=== PATIENT | female | born 2000 | race Caucasian/White ===

== ENCOUNTER → 2020-03-24 12:59 | Outpatient (CLI) | payer OTHER, SELFPAY ==
--- NOTE | 2020-03-24 13:05 | CT_ITS ---
STUDY: CTA CHEST REASON FOR EXAM: Female, 19 years old. SHORT OF BREATH and chest pain. RADIATION DOSAGE (If Supplied By Facility): CTDIvol = ( 9.44 ) mGy, DLP = ( 255.20 ) mGycm TECHNIQUE: The examination was performed with the intravenous administration of IV 100mL Isovue-[id number]. Post-processing of the angiographic images was performed, with multiplanar reformation and 3D reconstruction. Individualized dose optimization techniques were used for this CT. COMPARISON: None. FINDINGS: Normal enhancement of the main pulmonary artery and right and left pulmonary arteries. Normal enhancement of the bilateral peripheral pulmonary arteries. There is no demonstrated pulmonary embolism. Normal thoracic aorta and visualized great vessels. There is no demonstrated aortic dissection. Normal heart and pericardium. Normal mediastinum. Normal hilar regions. Normal visualized trachea and bronchi. The lungs are well expanded. Normal pulmonary parenchyma. Normal pleura. Normal chest wall structures. Normal osseous structures. Normal visualized upper abdomen. CT/CTA Chest W/WO Contrast IMPRESSION: Within normal limits CTA chest examination, without a demonstrated pulmonary embolism or arterial dissection. Electronically Signed: Nica Walker MD at 18:51 EST Tel , Service support ,
[2020-03-24 13:24] LABS: Absolute Lymphocyte Count 1.46 X10^3/uL (0.83-4.51); Absolute Neutrophil Count 3.9 X10^3/uL (2.0-7.7); Basophil# 0.01 X10^3/uL; Basophil% 0.2 % (0-1); Eosinophil# 0.01 X10^3/uL; Eosinophils% 0.2 % (0-5); Hematocrit 37.8 % (37-47); Hemoglobin 13.6 g/dL (12.0-15.0); Lymphocyte # 1.46 X10^3/ul (4.0); Lymphocyte % 25.3 % (19-41); Mean Corpuscular Hgb 36.2 pg (27.0-32.0); Mean Corpuscular Volume 100.5 fL (81-99); Mean Platelet Vol. 9.5 fl (6.2-12.0); Monocyte# 0.33 X10^3/uL; Monocyte% 5.7 % (0-10); NRBC Flagged by Analyzer 0 % (0-5); Neutrophil # 3.92 X10^3/uL (2.7-7.7); Neutrophil % 68.1 % (47-70); Platelet Count 199 K/mm3 (150-450); RBC Distribution Width CV 11.6 % (11.6-14.6); RBC Distribution Width SD 41.9 fl (35.1-43.9); Red Blood Count 3.76 M/mm3 (4.2-5.4); White Blood Count 5.8 K/mm3 (4.4-11.0)
[2020-03-24 13:34] LABS: ALB/GLOB Ratio 1.3 RATIO (0.9-2.4); AST(SGOT) 11 U/L (15-37); Alanine Aminotransfer ALT/SGPT 17 U/L (13-56); Albumin, Serum 4.6 g/dL (3.2-5.0); Alkaline Phosphatase 71 U/L (45-117); Anion Gap 5 (5-15); BUN 10 mg/dL (7-18); BUN/Creat Ratio 13.6 RATIO (10-20); Calcium,Total 9.4 mg/dL (8.5-10.1); Chloride 108 mmol/L (98-107); Creatinine, Serum 0.74 mg/dL (0.55-1.02); EST Glomerular Filtration Rate 106 mL/min (>60); Est Glom Filt Rate - Afr Amer 128 mL/min (>60); Globulin 3.5 g/dL (2.2-4.2); Glucose 82 mg/dL (74-106); Potassium 3.9 mmol/L (3.5-5.1); Protein, Total 8.1 g/dL (6.4-8.2); Sodium Level 139 mmol/L (136-145)
== END ==
PROVIDERS: PCP Internal Medicine; Referring Provider Internal Medicine; Visit Provider Internal Medicine
DX: R06.02 Shortness of breath (principal); R07.9 Chest pain, unspecified
CPT/HCPCS: 71275; 80053; 84484; 85025; 85379; Q9967

== ENCOUNTER → 2020-03-29 12:52 | Outpatient (CLI) | payer OTHER, SELFPAY ==
--- NOTE | 2020-03-29 12:54 | ECHOD_ITS ---
Reason For Study: CP Procedure This was a 2D Doppler, Color Flow transthoracic echocardiogram. Exam performed in department. Left Ventricle Normal LV size. Left ventricular systolic function is normal. The estimated ejection fraction is 60 %. No regional wall motion abnormalities noted. Right Ventricle Normal RV size. Normal systolic function. Atria Normal left atrium. Normal right atrium. Mitral Valve Normal mitral valve. Tricuspid Valve Normal tricuspid valve. Mild tricuspid valve insufficiency. Aortic Valve Normal aortic valve. Trisinus/trileaflet aortic valve. Pulmonic Valve Normal pulmonic valve. Great Vessels Normal aortic root. The pulmonary artery is normal size. Normal inferior vena cava. Pericardium/Pleural No pericardial effusion. MMode/2D Measurements & Calculations LVIDd: 4.5 cm IVSd: 0.71 cm Ao root diam: 2.9 cm LVIDs: 2.3 cm LVPWd: 0.87 cm LA dimension: 3.0 cm RVDd: 3.2 cm FS: 48.8 % LAV(MOD-bp): 35.5 ml LA A4 area: 15.2 cm2 RA A4 area: 13.1 cm2 LAV(MOD-bp) Indexed: 19.9 ml/m2 LAV(MOD-sp2): 28.3 ml LAV(MOD-sp4): 37.6 ml Time Measurements MV dec time: 0.24 sec Doppler Measurements & Calculations MV E max eldon: 114.0 cm/sec Lat Peak E' Eldon: 19.5 cm/sec Med Peak E' Eldon: 19.9 cm/sec MV A max eldon: 63.6 cm/sec E/E' lat: 5.9 E/E' med: 5.7 MV E/A: 1.8 MV V2 max: 124.9 cm/sec MV P1/2t max eldon: 124.2 cm/sec Ao V2 max: 119.4 cm/sec MV max P.2 mmHg MV P1/2t: 106.4 msec Ao max P.7 mmHg MV V2 mean: 61.6 cm/sec MV dec slope: 342.0 cm/sec2 MV mean P.0 mmHg MVA(P1/2t): 2.1 cm2 MV V2 VTI: 32.7 cm LV V1 max: 112.5 cm/sec PA V2 max: 140.6 cm/sec TR max eldon: 208.0 cm/sec LV V1 max P.1 mmHg TR max P.3 mmHg Interpretation Summary Normal LV size. Left ventricular systolic function is normal. The estimated ejection fraction is 60 %. Structurally normal valves. Ordering Physician: Traci Lin Referring Physician: Traci Lin Performed By: Shantanu Joseph RCS
== END ==
PROVIDERS: PCP Internal Medicine; Referring Provider Internal Medicine; Visit Provider Internal Medicine
DX: R07.9 Chest pain, unspecified (principal)
CPT/HCPCS: 93306